=== PATIENT | female | born 1960 | race Caucasian/White ===

== ENCOUNTER → 2018-11-03 11:03 | Outpatient (CLI) | payer OTHER, SELFPAY ==
[2018-11-03 12:15] LABS: BUN Creatinine Ratio 22.9 (6-22); Blood Urea Nitrogen 16 mg/dL (7-17); Calcium 10.2 mg/dL (8.4-10.2); Carbon Dioxide 28 mmol/L (22-32); Chloride 103 mmol/L (98-107); Estimated Glomerular Filt Rate > 60.0 mL/min (>60); Glucose 87 mg/dL (70-100); HEMOLYSIS < 15 (0-50); Potassium 4.2 mmol/L (3.4-5.1); Sodium 143 mmol/L (137-145)
== END ==
PROVIDERS: PCP Internal Medicine; Visit Provider Internal Medicine
DX: I10 Essential (primary) hypertension (principal)
CPT/HCPCS: 36415; 80048

== ENCOUNTER → 2019-03-24 13:41 | Outpatient (CLI) | payer OTHER, SELFPAY ==
--- NOTE | 2019-03-24 | DI.MG.S_ITS ---
BILATERAL DIGITAL SCREENING MAMMOGRAM 3D/2D WITH CAD: 03/24/2019 CLINICAL: Routine screening. Comparison is made to exams dated: 02/26/2018 mammogram, 01/10/2017 mammogram, and 12/29/2015 mammogram - [facility]. The tissue of both breasts is extremely dense, which lowers the sensitivity of mammography. Current study was also evaluated with a Computer Aided Detection (CAD) system. There are a grouped linear fine calcifications in the right breast middle depth medial region seen on the craniocaudal view only. No other significant masses, calcifications, or other findings are seen in either breast. IMPRESSION: INCOMPLETE: NEEDS ADDITIONAL IMAGING EVALUATION The grouped linear fine calcifications in the right breast are indeterminate and may be related to C-view artifact, but are more prominent compared to prior study. A diagnostic mammogram is recommended. This exam was interpreted at Station ID: [id number]. NOTE: For mammograms, a report in lay terms will be sent to the patient. Approximately 15% of breast malignancies will not be visualized mammographically. In the management of a palpable breast mass, a negative mammogram must not discourage biopsy of a clinically suspicious lesion. Electronically Signed By: Katharina shelby/:03/24/2019 20:26:54 copy to: Bill Basurto letter sent: Additional Imaging Needed ACR BI-RADS Category 0: Incomplete 3340F
== END ==
PROVIDERS: PCP Internal Medicine; Visit Provider Internal Medicine
DX: Z12.31 Encounter for screening mammogram for malignant neoplasm of breast (principal)
CPT/HCPCS: 77063; 77067

== ENCOUNTER → 2019-04-07 13:06 | Outpatient (CLI) | payer OTHER, SELFPAY ==
--- NOTE | 2019-04-07 | DI.MG.S_ITS ---
UNILATERAL RIGHT DIGITAL DIAGNOSTIC MAMMOGRAM 3D/2D WITH ADDITIONAL VIEWS: 04/07/2019 CLINICAL: Additional evaluation requested from prior study. Comparison is made to exams dated: 03/24/2019 mammogram, 02/26/2018 mammogram, and 01/10/2017 mammogram - [facility]. The tissue of right breast is extremely dense, which lowers the sensitivity of mammography. The grouped linear fine calcifications in the right breast middle depth medial region seen on the craniocaudal view only are not seen in additional views. No other significant masses or calcifications are seen in the breast. IMPRESSION: The questionable calcifications seen on the screening mammogram likely represent tomosynthesis artifact (pseudocalcifications). There is no mammographic evidence of malignancy. A 1 year screening mammogram is recommended. This exam was interpreted at Station ID: [id number]. NOTE: For mammograms, a report in lay terms will be sent to the patient. Approximately 15% of breast malignancies will not be visualized mammographically. In the management of a palpable breast mass, a negative mammogram must not discourage biopsy of a clinically suspicious lesion. Electronically Signed By: Ashley Whatley M.D. lk/:04/07/2019 14:15:25 copy to: Bill Basurto letter sent: Normal Exam ACR BI-RADS Category 2: Benign Finding(s) 3342F
== END ==
PROVIDERS: PCP Internal Medicine; Visit Provider Internal Medicine
DX: R92.1 Mammographic calcification found on diagnostic imaging of breast (principal)
CPT/HCPCS: 77065; G0279

== ENCOUNTER → 2019-08-25 14:32 | Outpatient (ROUT) | payer OTHER, SELFPAY ==
[2019-08-25 14:54] LABS: BUN Creatinine Ratio 31.4 (6-22); Blood Urea Nitrogen 22 mg/dL (7-17); Calcium 10.5 mg/dL (8.4-10.2); Carbon Dioxide 29 mmol/L (22-32); Chloride 101 mmol/L (98-107); Cholesterol 213 mg/dL (140-199); Estimated Glomerular Filt Rate > 60.0 mL/min (>60); Glucose 83 mg/dL (80-110); HDL Cholesterol 63 mg/dL (40-60); HEMOLYSIS < 15 (0-50); LDL Cholesterol Calculated 139 mg/dL (<100); Potassium 3.6 mmol/L (3.4-5.1); Sodium 140 mmol/L (137-145); Triglycerides 56 mg/dL (35-150)
== END ==
PROVIDERS: PCP Internal Medicine; Visit Provider Internal Medicine
DX: I10 Essential (primary) hypertension (principal); E78.2 Mixed hyperlipidemia
CPT/HCPCS: 80048; 80061

== ENCOUNTER 2020-01-26 08:45 | Day surgery (SDC) | payer OTHER, SELFPAY ==
[2020-01-26 09:06] VITALS: BP 133/81; PULSE 96; RESP 20; TEMP 36.3; O2SAT 98; BMI 25.0
[2020-01-26] MEDS: SODIUM CHLORIDE 0.9% 1,000 ML 42 ML IV (09:06)
--- NOTE | 2020-01-26 09:33 | PM.HP.1 ---
History of Present Illness History of Present Illness Date Patient Seen: 01/26/20 Chief complaint: [id number] Narrative: Family history of colon cancer. Need for colorectal cancer Patient History Medical History (Updated 11/05/19 @ 10:09 by Bill Basurto MD) Chicken pox (Resolved) Cholesteatoma of left ear (Resolved) Colon polyps (Resolved 08/29/14) Depression (Chronic 2001) Hypertension (Chronic ~1994) Measles (Resolved) Menopause (Acute) MRSA infection (Resolved ~2003) Urge incontinence (Acute) Surgical History Anesthesia (Resolved) History of colonoscopy with polypectomy (Resolved 08/29/14) History of ear surgery (Resolved) Status post dilation and curettage (Resolved) Family & Social History Social History: household members spouse Tobacco & Substance use: Smoking Status Former smoker alcohol intake frequency holiday/special occasion Substance Use Type does not use Meds Home Medications and Allergies Home Medications Medication Instructions Recorded Confirmed Type ASPIRIN (#ASPIR 81) 81 mg PO Q DAY #0 02/19/12 01/26/20 History CA PANTOTHENATE/FOLIC ACID/VIT 1 tab PO Q DAY #0 02/19/12 01/26/20 History (MULTIVITAMIN) potassium chloride 10 mEq 10 meq PO DAILY 10/13/18 01/26/20 History capsule,extended release chlorthalidone 25 mg tablet 25 mg PO DAILY 11/05/19 01/26/20 History lisinopril 40 mg tablet 40 mg PO DAILY 11/05/19 01/26/20 History tolterodine 4 mg capsule,extended 4 mg PO DAILY #30 cap 11/08/19 01/26/20 Rx release 24 hr estradiol pearls 10 mcg VAG 3X WEEK #12 tab 11/15/19 01/26/20 Rx norethindrone (contraceptive) 0.35 See Rx Instructions .ROUTE 01/13/20 01/26/20 Rx mg tablet .COMPLEX #28 tab Allergies Allergy/AdvReac Type Severity Reaction Status Date / Time No Known Drug Allergies Allergy Verified 01/26/20 09:02 Exam Vital Signs (past 8 hours): - 01/26/20 09:06 Temperature 97.3 F L Pulse Rate 96 H Respiratory Rate 20 Blood Pressure 133/81 Pulse Oximetry 98 Oxygen Delivery Method Room Air Narrative Exam Narrative: Oropharynx free of lesions Chest clear to auscultation percussion Cardiac exam reveals no S3 or murmur Assessment & Plan Assessment & Plan narrative: Family history of colon cancer at a young age in father and older age in mother. Need for colorectal cancer screening. No history of polyps personally. Risks, benefits, alternatives have been explained. Colonoscopy to be performed today
--- NOTE | 2020-01-26 09:34 | PM.OP.ENDO ---
Operative Date/Time/Diagnoses Date of procedure: 01/26/20 Pre-op diagnosis: See indication and findings Procedure & Clinicians Study performed: Colonoscopy Same procedure as scheduled: Yes Indications: Family history of colon cancer in both parents. No personal history of colon polyps. Need for follow-up colonoscopy Surgeon: Karen Jama Procedure Notes Procedure in detail: After informed consent was obtained the patient was placed in the left lateral decubitus position. The video colonoscope was induced the rectum slowly advanced to cecum. Slow withdrawal mucosa was carefully examined. Preparation was good. The scope was removed. The patient tolerated procedure well. Blood loss none Complications none Sedation Total sedation time 17 minutes Versed 6 mg fentanyl 100 mg IV titration Findings 1. Completely normal colonoscopy to cecum Given the patient's family history she will have follow-up colonoscopy in 5 years.
[2020-01-26] MEDS: MIDAZOLAM 5 MG/5 ML VIAL IV (10:31)
[2020-01-26] MEDS: fentaNYL 250 MCG/5 ML INJ IV (10:33)
[2020-01-26 10:35] VITALS: BP 131/85; PULSE 76; RESP 14; TEMP 36.2; O2SAT 97
[2020-01-26 10:40] VITALS: BP 114/81; PULSE 84; RESP 16; O2SAT 97
[2020-01-26 10:45] VITALS: BP 130/85; PULSE 78; RESP 14; TEMP 36.2; O2SAT 96
== END 2020-01-26 10:58 | disposition home or self-care (01) ==
PROVIDERS: PCP Internal Medicine; Referring Provider Internal Medicine; Visit Provider Internal Medicine Gastroenterology
PROC: 0DJD8ZZ Inspection of Lower Intestinal Tract, Via Natural or Artificial Opening Endoscopic (ICD-10-PCS; CPT 45378; principal; 2020-01-26 10:30)
DX: Z12.11 Encounter for screening for malignant neoplasm of colon (principal); Z80.0 Family history of malignant neoplasm of digestive organs
CPT/HCPCS: 45378; J2250; J3010

== ENCOUNTER → 2020-04-21 12:42 | Outpatient (CLI) | payer OTHER, SELFPAY ==
--- NOTE | 2020-04-21 | DI.MG.S_ITS ---
BILATERAL DIGITAL SCREENING MAMMOGRAM 3D/2D WITH CAD: 04/21/2020 CLINICAL: Routine screening. Comparison is made to exams dated: 04/07/2019 mammogram, 03/24/2019 mammogram, 02/26/2018 mammogram, 01/10/2017 mammogram, 12/29/2015 mammogram, and 12/02/2014 mammogram - [facility]. The tissue of both breasts is extremely dense, which lowers the sensitivity of mammography. Current study was also evaluated with a Computer Aided Detection (CAD) system. There are 0.9 cm diffuse fine calcifications in the right breast posterior depth lateral region seen on the craniocaudal view only. These are increased in number. No other significant masses, calcifications, or other findings are seen in either breast. IMPRESSION: INCOMPLETE: NEEDS ADDITIONAL IMAGING EVALUATION The 0.9 cm diffuse fine calcifications in the right breast are indeterminate. Additional views are recommended. This exam was interpreted at Station ID: [id number]. NOTE: For mammograms, a report in lay terms will be sent to the patient. Approximately 15% of breast malignancies will not be visualized mammographically. In the management of a palpable breast mass, a negative mammogram must not discourage biopsy of a clinically suspicious lesion. Electronically Signed By: Jared Arreola M.D. slc/:04/21/2020 13:36:18 copy to: Bill Basurto letter sent: Additional Imaging Needed ACR BI-RADS Category 0: Incomplete 3340F
== END ==
PROVIDERS: Referring Provider Internal Medicine; Visit Provider Internal Medicine
DX: Z12.31 Encounter for screening mammogram for malignant neoplasm of breast (principal)
CPT/HCPCS: 77063; 77067

== ENCOUNTER → 2020-05-09 13:40 | Outpatient (CLI) | payer OTHER, SELFPAY ==
--- NOTE | 2020-05-09 | DI.MG.S_ITS ---
UNILATERAL RIGHT DIGITAL DIAGNOSTIC MAMMOGRAM 3D/2D WITH ADDITIONAL VIEWS: 05/09/2020 CLINICAL: Additional evaluation requested from prior study. Comparison is made to exams dated: 04/21/2020 mammogram, 04/07/2019 mammogram, 03/24/2019 mammogram, and 02/26/2018 mammogram - [facility]. The tissue of right breast is extremely dense, which lowers the sensitivity of mammography. The fine calcifications in the right breast posterior depth lateral region seen on the craniocaudal view only are no longer convincingly seen on standard, or in additional views. No other significant masses or calcifications are seen in the breast. IMPRESSION: PROBABLY BENIGN Calcifications in the lateral right breast were not seen on magnification views and may have again been technical artifact. A follow-up mammogram in 6 months is recommended to confirm resolution of fine calcification in the right breast posterior depth lateral region seen on the craniocaudal view only. Findings and recommendations were conveyed to the patient at time of exam. This exam was interpreted at Station ID: [id number]. NOTE: For mammograms, a report in lay terms will be sent to the patient. Approximately 15% of breast malignancies will not be visualized mammographically. In the management of a palpable breast mass, a negative mammogram must not discourage biopsy of a clinically suspicious lesion. Electronically Signed By: Katharina shelby/:05/09/2020 14:46:28 copy to: Bill Basurto letter sent: Followup Recommended ACR BI-RADS Category 3: Probably benign 3343F
== END ==
PROVIDERS: Referring Provider Internal Medicine; Visit Provider Internal Medicine
DX: R92.1 Mammographic calcification found on diagnostic imaging of breast (principal)
CPT/HCPCS: 77065; G0279

== ENCOUNTER → 2020-10-17 08:41 | Outpatient (CLI) | payer OTHER, SELFPAY ==
--- NOTE | 2020-10-17 | DI.MG.S_ITS ---
UNILATERAL RIGHT DIGITAL DIAGNOSTIC MAMMOGRAM 3D/2D SHORT-TERM FOLLOW-UP: 10/17/2020 CLINICAL: Short term follow up of the right breast. Comparison is made to exams dated: 05/09/2020 mammogram, 04/21/2020 mammogram, 04/07/2019 mammogram, 03/24/2019 mammogram, and 02/26/2018 mammogram - [facility]. The tissue of right breast is extremely dense, which lowers the sensitivity of mammography. There is a fine calcification in the right breast at 8 o'clock posterior depth. This is less prominent and appear more diffuse. No other significant masses or calcifications are seen in the breast. IMPRESSION: PROBABLY BENIGN The fine calcifications in the right breast are less prominent and are probably benign. A follow-up right breast mammogram in 6 months is recommended to demonstrate stability. Patient will also be due for left breast mammogram at that time. This exam was interpreted at Station ID: [id number]. NOTE: For mammograms, a report in lay terms will be sent to the patient. Approximately 15% of breast malignancies will not be visualized mammographically. In the management of a palpable breast mass, a negative mammogram must not discourage biopsy of a clinically suspicious lesion. Electronically Signed By: Jared Arreola M.D. slc/:10/17/2020 09:39:51 copy to: Bill Basurto letter sent: Followup Recommended ACR BI-RADS Category 3: Probably benign 3343F
== END ==
PROVIDERS: PCP Internal Medicine; Referring Provider Internal Medicine; Visit Provider Internal Medicine
DX: R92.1 Mammographic calcification found on diagnostic imaging of breast (principal)
CPT/HCPCS: 77065; G0279

== ENCOUNTER → 2020-11-15 18:12 | Outpatient (ROUT) | payer OTHER, SELFPAY ==
[2020-11-15 18:35] LABS: Aspartate Aminotransferase 26 IU/L (14-36); BUN Creatinine Ratio 24.1 (6-22); Blood Urea Nitrogen 19 mg/dL (7-17); Calcium 10.1 mg/dL (8.4-10.2); Carbon Dioxide 31 mmol/L (22-32); Chloride 102 mmol/L (98-107); Cholesterol 229 mg/dL (140-199); Estimated Glomerular Filt Rate > 60.0 mL/min (>60); Glucose 97 mg/dL (80-110); HDL Cholesterol 59 mg/dL (40-60); HEMOLYSIS < 15 (0-50); LDL Cholesterol Calculated 150 mg/dL (<100); Potassium 3.5 mmol/L (3.4-5.1); Sodium 137 mmol/L (137-145); Triglycerides 100 mg/dL (35-150)
[2020-11-15 19:03] LABS: TSH w/ Reflex to FT4 0.54 uIU/mL (0.47-4.68)
== END ==
PROVIDERS: PCP Internal Medicine; Visit Provider Internal Medicine
DX: I10 Essential (primary) hypertension (principal); E78.2 Mixed hyperlipidemia
CPT/HCPCS: 80048; 80061; 84443; 84450

== ENCOUNTER → 2020-11-30 10:06 | Outpatient (CLI) | payer OTHER, SELFPAY | PROVIDERS: PCP Internal Medicine; Referring Provider Internal Medicine; Visit Provider Internal Medicine | DX: Z78.0 Asymptomatic menopausal state (principal) | CPT/HCPCS: 77080 ==

== ENCOUNTER → 2021-03-26 12:40 | Outpatient (CLI) | payer OTHER, SELFPAY ==
--- NOTE | 2021-03-26 | DI.MG.S_ITS ---
BILATERAL DIGITAL DIAGNOSTIC MAMMOGRAM 3D/2D SHORT-TERM FOLLOW-UP: 03/26/2021 CLINICAL: Short term follow up of the right breast, due for bilateral imaging. Comparison is made to exams dated: 10/17/2020 mammogram, 05/09/2020 mammogram, 04/21/2020 mammogram, 04/07/2019 mammogram, 03/24/2019 mammogram, and 02/26/2018 mammogram - [facility]. The tissue of both breasts is extremely dense, which lowers the sensitivity of mammography. There is a fine calcification in the right breast at 8 o'clock posterior depth are stable. No other significant masses, calcifications, or other findings are seen in either breast. IMPRESSION: BENIGN There is no mammographic evidence of malignancy. Fine calcification in the right breast demonstrate long-term stability and are benign. A 1 year screening mammogram is recommended. Exam findings were conveyed to the patient. This exam was interpreted at Station ID: [id number]. NOTE: For mammograms, a report in lay terms will be sent to the patient. Approximately 15% of breast malignancies will not be visualized mammographically. In the management of a palpable breast mass, a negative mammogram must not discourage biopsy of a clinically suspicious lesion. Electronically Signed By: Jared Arreola M.D. slc/:03/26/2021 13:57:36 letter sent: Normal Exam ACR BI-RADS Category 2: Benign Finding(s) 3342F
== END ==
PROVIDERS: PCP Internal Medicine; Referring Provider Internal Medicine; Visit Provider Internal Medicine
DX: R92.8 Other abnormal and inconclusive findings on diagnostic imaging of breast (principal); R92.1 Mammographic calcification found on diagnostic imaging of breast
CPT/HCPCS: 77066; G0279

== ENCOUNTER → 2022-04-01 10:26 | Outpatient (CLI) | payer OTHER, SELFPAY ==
--- NOTE | 2022-04-01 | DI.MG.S_ITS ---
BILATERAL DIGITAL SCREENING MAMMOGRAM 3D/2D WITH CAD: 04/01/2022 CLINICAL: Routine screening. Comparison is made to exams dated: 03/26/2021 mammogram, 10/17/2020 mammogram, 05/09/2020 mammogram, 04/21/2020 mammogram, 04/07/2019 mammogram, and 03/24/2019 mammogram - [facility]. The tissue of both breasts is extremely dense, which lowers the sensitivity of mammography. Current study was also evaluated with a Computer Aided Detection (CAD) system. There are stable benign lymph nodes in the right breast. No significant masses, calcifications, or other findings are seen in either breast. There has been no significant interval change. IMPRESSION: BENIGN There is no mammographic evidence of malignancy. A 1 year screening mammogram is recommended. This exam was interpreted at Station ID: [id number]. NOTE: For mammograms, a report in lay terms will be sent to the patient. Approximately 15% of breast malignancies will not be visualized mammographically. In the management of a palpable breast mass, a negative mammogram must not discourage biopsy of a clinically suspicious lesion. Electronically Signed By: Griffin Ward acr/penrad:04/01/2022 10:56:52 letter sent: Normal Exam ACR BI-RADS Category 2: Benign Finding(s) 3342F
== END ==
PROVIDERS: PCP Internal Medicine; Referring Provider Internal Medicine; Visit Provider Internal Medicine
DX: Z12.31 Encounter for screening mammogram for malignant neoplasm of breast (principal)
CPT/HCPCS: 77063; 77067

== ENCOUNTER → 2023-05-14 11:26 | Outpatient (CLI) | payer OTHER, SELFPAY ==
--- NOTE | 2023-05-14 | DI.MG.S_ITS ---
BILATERAL DIGITAL SCREENING MAMMOGRAM 3D/2D WITH CAD: 05/14/2023 CLINICAL: Routine screening. Comparison is made to exams dated: 04/01/2022 mammogram, 03/26/2021 mammogram, 04/21/2020 mammogram, 03/24/2019 mammogram, and 02/26/2018 mammogram - [facility]. Both breasts are extremely dense, which lowers the sensitivity of mammography (category d />75% glandular tissue). Current study was also evaluated with a Computer Aided Detection (CAD) system. There are benign vascular calcifications in the left breast. No significant masses, calcifications, or other findings are seen in either breast. There has been no significant interval change. IMPRESSION: BENIGN There is no mammographic evidence of malignancy. A 1 year screening mammogram is recommended. Based on the Tyrer Cuzick model (a risk assessment model) the patient's lifetime risk is 11.7% and her 10 year risk is 5.5%. According to the ACR, ACS, and NCCN guidelines, an annual breast MRI exam along with mammogram is recommended if the patient's lifetime risk is 20% or greater. This exam was interpreted at Station ID: [id number]. NOTE: For mammograms, a report in lay terms will be sent to the patient. Approximately 15% of breast malignancies will not be visualized mammographically. In the management of a palpable breast mass, a negative mammogram must not discourage biopsy of a clinically suspicious lesion. Electronically Signed By: Jared morel/radha:05/14/2023 15:51:47 letter sent: Normal Exam ACR BI-RADS Category 2: Benign Finding(s) 3342F
== END ==
PROVIDERS: PCP Nurse Practitioner Family; Referring Provider Nurse Practitioner Family; Visit Provider Nurse Practitioner Family
DX: Z12.31 Encounter for screening mammogram for malignant neoplasm of breast (principal)
CPT/HCPCS: 77063; 77067

== ENCOUNTER 2025-03-01 10:14 | Day surgery (SDC) | payer MEDICARE, OTHER, SELFPAY ==
--- NOTE | 2025-03-01 | PATH_ITS ---
[facility] Accession Number: [id number] No. of containers..01 Tissue . 01 Material submitted: . colon - SIGMOID COLON POLYP . 01 Diagnosis: SIGMOID COLON POLYP: Hyperplastic polyp. [facility] 03/02/20256 Local . 01 Electronically signed: . Tacos Altamirano MD, Pathologist NPI- [id number] . 01 Gross description: . SIGMOID COLON POLYP: Received in formalin is 1 fragment(s) of denton, soft tissue measuring 0.3 x 0.2 x 0.2 cm submitted entirely in 1 cassette(s) /LEWIS 03/02/2025 Local . 01 Pathologist provided ICD-10: K63.5 . 01 CPT . 963082 Specimen Comment: A courtesy copy of this report has been sent to [facility] Pathology Performed at: [address] [facility] [id number] MD Tacos Altamirano MD Phone: [phone]
[2025-03-01] MEDS: LACTATED RINGERS 1,000 ML 100 ML IV (10:26)
[2025-03-01 10:37] VITALS: BP 148/91; PULSE 98; RESP 16; TEMP 36.1; O2SAT 98
--- NOTE | 2025-03-01 10:41 | P.HP_ITS ---
History of Present Illness History of Present Illness Date Patient Seen: 03/01/25 Time Patient Seen: 10:41 Chief complaint: Colonoscopy Narrative: 64-year-old white female presents for colon cancer screening. Positive family history of colon cancer in both parents. [facility] Medical History Urge incontinence Menopause Colon polyps (08/29/14) Depression (2001) MRSA infection (~2003) Measles Chicken pox Hypertension (~1994) Cholesteatoma of left ear Surgical History Anesthesia History of colonoscopy with polypectomy (08/29/14) History of ear surgery Status post dilation and curettage Family History Father Cancer Hypertension Melanoma Parkinson's disease Mother Age: 95 Cancer CLL (chronic lymphocytic leukemia) Colon cancer Lymphoma Sister Age: 68 Cancer Melanoma Daughter No problems noted. Son No problems noted. Son No problems noted. Social History household members: spouse Smoking Status: Former smoker alcohol intake: current Meds Home Medications and Allergies Home Medications Medication Instructions Recorded Confirmed Type ASPIRIN (#ASPIR 81) 81 mg PO Q DAY ##0 02/19/12 03/01/25 History CA PANTOTHENATE/FOLIC ACID/VIT 1 tab PO Q DAY ##0 02/19/12 01/26/20 History (MULTIVITAMIN) potassium chloride 10 mEq 10 meq PO DAILY 10/13/18 01/26/20 History capsule,extended release chlorthalidone 25 mg tablet 25 mg PO DAILY 11/05/19 01/26/20 History lisinopril 40 mg tablet 40 mg PO DAILY 11/05/19 01/26/20 History norethindrone (contraceptive) 0.35 See Rx Instructions .Route 01/13/20 01/26/20 Rx mg tablet (Norlyda) .COMPLEX #28 tabs tolterodine 4 mg capsule,extended See Rx Instructions .Route 02/29/20 Rx release 24 hr .COMPLEX #30 caps CMP Estradiol 10mcg Vaginal Pearls 10 mcg vaginal 3X WEEK vaginal 11/29/21 Rx atrophy #30 tabs sodium,potassium,mag sulfates 17.5 See Rx Instructions PO .COMPLEX 02/04/25 Rx gram-3.13 gram-1.6 gram oral soln #354 mL (Suprep Bowel Prep Kit) Allergies Allergy/AdvReac Type Severity Reaction Status Date / Time No Known Drug Allergies Allergy Verified 03/01/25 10:30 Review of Systems Review of Systems ROS: Yes All systems reviewed with the patient and are negative except as otherwise documented Exam Vital Signs (past 8 hours): - 03/01/25 10:37 Temperature 97 F L Pulse Rate 98 H Respiratory Rate 16 Blood Pressure 148/91 H Pulse Oximetry 98 Oxygen Delivery Method Room Air Oxygen Delivery Method Room Air Narrative Exam Narrative: Gen: NAD, sitting comfortably in bed, appears well HEENT: Sclera are anicteric, head is normocephalic and atraumatic, trachea is midline. CV: RRR, no JVD Resp: clear to auscultation bilaterally, equal chest wall movement bilaterally Abd: soft, nontender, normoactive bowel sounds Ext: no edema, full range of motion Neuro: Cranial nerves II-XII grossly intact, no focal deficits Skin: No erythema or ecchymosis Assessment & Plan Assessment and plan (1) Family hx of colon cancer requiring screening colonoscopy: Status: Acute Assessment & Plan narrative: Patient presents for colonoscopy Risks, benefits, alternatives to colonoscopy explained, including but not li mited to bowel perforation or other serious complication requiring surgery at less than 1 in 5000 colonoscopies, abdominal pain, cramping or bleeding and less than 1% of colonoscopies, and the chances that we find a diagnosis that would require further intervention of about 2%. Patient agrees to proceed. Time-Based Coding :: [TOTAL MINUTES] spent with patient and on the chart (including review of chart, obtaining history, exam, reviewing outside data, placing orders, documenting exam and treatment plan, and counseling patient) on [DATE]. [employer] Document charge(s): No
--- NOTE | 2025-03-01 10:59 | PM.OP.COLON ---
Operative Date/Time/Diagnoses Date of procedure: 03/01/25 Time of procedure: 10:59 Pre-op diagnosis: Colon screening Post-op diagnosis: other (Sigmoid polyp) Procedure & Clinicians Study performed: Colonoscopy cold snare polypectomy sigmoid polyp Same procedure as scheduled: Yes Indications: Family history colon cancer Surgeon: Rajat Riley Procedure Notes SCOAP/Timeout: Performed Procedure in detail: Time-out was performed. Mac was induced. Patient was placed in left lateral decubitus position. The perineum was inspected without any gross abnormality. Lubricated pediatric colonoscope was inserted and advanced to the cecum. The terminal ileum was intubated. The colonoscope was withdrawn slowly inspecting the circumference of the colon. Small, hyperplastic appearing sigmoid polyp was noted removed completely with cold snare polypectomy and retrieved. Very small polyps may have been missed, prep quality was adequate. Retroflexed view of the rectum showed small, non prolapsed nonbleeding internal hemorrhoids. The scope was withdrawn the patient was taken to PACU in good condition. Scope withdrawal time: 11 Findings: polyp(s) Specimen(s): other (Sigmoid polyp) Complications: none Impression: Benign polyp Post-procedure Recommendations: Colonoscopy in 5 years Follow up: as needed Disposition: PACU
[2025-03-01 11:03] VITALS: BP 115/75; PULSE 85; RESP 15; TEMP 36.2; O2SAT 96
[2025-03-01 11:06] VITALS: BP 119/75; PULSE 80; RESP 24; O2SAT 99
[2025-03-01 11:11] VITALS: BP 132/81; PULSE 78; RESP 15; TEMP 36.2; O2SAT 100
== END 2025-03-01 11:47 | disposition home or self-care (01) ==
PROVIDERS: PCP Nurse Practitioner Family; Referring Provider Nurse Practitioner Family; Visit Provider Surgery
PROC: 0DJD8ZZ Inspection of Lower Intestinal Tract, Via Natural or Artificial Opening Endoscopic (ICD-10-PCS; CPT 45378; principal; 2025-03-01 11:00)
DX: Z12.11 Encounter for screening for malignant neoplasm of colon (principal); Z87.891 Personal history of nicotine dependence; Z80.0 Family history of malignant neoplasm of digestive organs; K64.8 Other hemorrhoids; K63.5 Polyp of colon
CPT/HCPCS: 45385; J2704

== ENCOUNTER → 2025-05-17 11:19 | Outpatient (CLI) | payer MEDICARE, OTHER, SELFPAY ==
--- NOTE | 2025-05-17 11:20 | DI.MG.S_ITS ---
MM screening mammo BI: 05/17/2025. BI-RADS: 1 CLINICAL: 64-year old female for bilateral screening mammogram. Tyrer-Cuzick lifetime risk of 5.9%. No personal or first-degree family history of breast cancer. PRIOR EXAMS 05/14/2023, 04/01/2022, 03/26/2021, 10/17/2020, 05/09/2020, 04/21/2020, 04/07/2019, 03/24/2019, 02/26/2018, 01/10/2017, 12/29/2015. MAMMOGRAPHY TECHNIQUE: 2D and 3D (tomosynthesis) digital mammographic views obtained, with additional images as needed for full coverage. Current study was also evaluated with a Computer Aided Detection (CAD) system. DENSITY C. The breasts are heterogeneously dense, which may obscure small masses. MAMMOGRAPHY FINDINGS Bilateral: No suspicious mass, asymmetry, microcalcification, or other abnormality seen. IMPRESSION: * No evidence of malignancy. RECOMMENDATIONS Bilateral * Annual screening mammography. OVERALL ASSESSMENT CATEGORY BI-RADS-1: Negative. The [employer] recommends annual screening mammography beginning at age 40 for women with average risk of breast cancer. ELECTRONICALLY SIGNED: Bradley Loya M.D. on 05/17/2025 at 12:44:16 PM PT Interpreting Station ID: [id number]
== END ==
PROVIDERS: PCP Nurse Practitioner Family; Referring Provider Nurse Practitioner Family; Visit Provider Nurse Practitioner Family
DX: Z12.31 Encounter for screening mammogram for malignant neoplasm of breast (principal); R92.333 Mammographic heterogeneous density, bilateral breasts
CPT/HCPCS: 77063; 77067